=== PATIENT | male | born 1970 | race Caucasian/White ===

== ENCOUNTER → 2018-03-26 | Outpatient (CLI) | payer BC | LOC: HYPER 07:30 | DX: L89.313 Pressure ulcer of right buttock, stage 3 (principal); M62.3 Immobility syndrome (paraplegic) ==

== ENCOUNTER → 2018-04-02 | Outpatient (CLI) | payer BC | LOC: HYPER 06:51 | DX: L89.313 Pressure ulcer of right buttock, stage 3 (principal); M62.3 Immobility syndrome (paraplegic); G82.20 Paraplegia, unspecified ==

== ENCOUNTER → 2018-04-09 | Outpatient (CLI) | payer BC | LOC: HYPER 07:00 | DX: L89.313 Pressure ulcer of right buttock, stage 3 (principal); M62.3 Immobility syndrome (paraplegic); G82.20 Paraplegia, unspecified ==

== ENCOUNTER → 2018-07-13 | Outpatient (CLI) | payer BC | LOC: HYPER 07:49 | DX: L89.313 Pressure ulcer of right buttock, stage 3 (principal); M62.3 Immobility syndrome (paraplegic) ==

== ENCOUNTER → 2018-08-03 | Outpatient (CLI) | payer BC | LOC: HYPER 08:31 | DX: L89.313 Pressure ulcer of right buttock, stage 3 (principal); M62.3 Immobility syndrome (paraplegic) ==

== ENCOUNTER → 2018-08-21 | Outpatient (CLI) | payer BC | LOC: HYPER 08:32 | DX: L89.313 Pressure ulcer of right buttock, stage 3 (principal); M62.3 Immobility syndrome (paraplegic) ==